=== PATIENT | female | born 1990 | race Caucasian/White ===

== ENCOUNTER 2017-09-26 07:28 | Inpatient (IN) | payer MEDICAID ==
[~2017-09-26] VITALS: Ht 160.7 cm; Wt 88.9 kg
[2017-09-26] VITALS (24 sets, daily range): BP systolic 106–144; BP diastolic 55–106; Ht 160.7 cm; Wt 88.9 kg
[~2017-09-26 07:28] MED LIST: ACET-1966 PO; CIPR-326 PO; DUL30 PO; HYDR-4309 PO; IBUP800T37 PO; METH-543 PO; NIT100 PO; NO ROUTINE MEDS; NOR5/325 PO; ONDA4TAB PO; PER PO; PHENA200 PO; PNV1TABL77 PO; PRE20 PO; PREN-127 PO; PRO25 PO; [UNRECOGNIZED DRUG - OTHER]
[2017-09-26] MEDS ORDERED: ONDANSETRON 4 MG/2 ML VIAL IVP PRN (08:10)
[2017-09-26] MEDS ORDERED: FAMOTIDINE 20 MG/50 ML PREMIX IVPB ONE (08:10)
[2017-09-26] MEDS ORDERED: cefOXitin/DEX(*) 2GM/50ML PREM 50 ML IVPB ONE (08:25)
[2017-09-26 08:35] LABS: PLATELET COUNT, AUTOMATED 302 K/uL (150-450)
[2017-09-26] MEDS: LR(*) 1000 ML BAG 1,000 ML IV SCH ×3 (08:45→17:37)
[2017-09-26] MEDS ORDERED: METOCLOPRAMIDE 10 MG/2 ML SDV IVP ONE (09:25)
--- NOTE | 2017-09-26 09:33 | History & Physical ---
History of Present Illness Age of Patient: 27 : 2 Para or TPAL: 1001 EDC per LMP: Sep 28, 2017 Estimated Gestational Age: 40.5 Chief Complaint H/O C SECTION History of Present Illness The patient is a 27 year old 2 para 1001 admitted at 39 5/7 weeks estimated gestational age with an estimated date of delivery 09/28/17 . Patient is admitted for RLTCS . No vaginal bleeding. Good movement and occasional contractions. She was evaluated for active labor. She had an uncomplicated course. Her record was reviewed. History Allergies: Coded Allergies: Penicillins (Verified Allergy, Mild, 04/19/16) latex (Verified Allergy, Mild, RASH, 09/25/17) Family History: FH: diabetes mellitus Paternal Grandfather, Onset:Unknown FH: heart disease MOTHER, Onset:Unknown Med Rec Home Meds Reported Medications Acetaminophen (TYLENOL) 325 Mg Tablet, 325 MG PO, TAB 09/25/17 Vits W-Ca,Fe,Fa(<1MG) ( VITAMINS) 1 Each Tablet, 1 EACH PO DAILY, TAB 09/25/17 Discontinued Scripts Hydrocodone Bit/Acetaminophen (NORCO 5-325 TABLET) 1 Each Tablet, 1-2 EACH PO Q4H Y for PAIN, #15 TAB Prov:CORINA ACEVEDO DO 04/19/16 Methocarbamol (ROBAXIN-750) 750 Mg Tablet, 1 TAB PO TID Y for muscle spasm relief, #30 Prov:CORINA ACEVEDO DO 04/19/16 Exam General Exam Vital Signs Vital Signs Date Time Temp Pulse Resp B/P (MAP) Pulse Ox O2 Delivery O2 Flow Rate FiO2 09/26/17 07:59 98.8 98 17 133/79 (97) 99 Room Air Cardiovascular: Regular Rate and Rhythm Respiratory: Clear to Auscultation Abdomen: Gravid - Non-Tender Extremities: No Edema Uterine Contractions(Q min): 0 Fetus Heart Tones: 130 FHT Category: I Medical Decision Making Data Points Result Diagram: 09/26/17 0826 Assessment and Plan Problems: (1) History of Assessment & Plan: H/O C SECTION PLAN FOR RLTCS Copies to: SHANICE SAHU MD, JOHN MD Sep 26, 2017 09:33
[2017-09-26] MEDS ORDERED: METOCLOPRAMIDE 10 MG/2 ML SDV ONE (09:34)
[2017-09-26] MEDS ORDERED: MORPHINE PF 5 MG/10 ML AMP ONE (09:38)
[2017-09-26] MEDS ORDERED: OXYTOCIN 10 UNIT/ML SDV ONE ×2 (09:46→11:46)
[2017-09-26] MEDS ORDERED: PHENYLEPHRINE/NS/PF 0.4MG/10ML ONE (10:12)
[2017-09-26] MEDS ORDERED: NS 0.9% 20 ML SDV 20 ML ONE (10:20)
[2017-09-26] MEDS ORDERED: PHENYLEPHRINE 10 MG/1 ML VIAL ONE (10:20)
[2017-09-26] MEDS ORDERED: DEXAMETHASONE SOD 4 MG/ML VIAL ONE (10:24)
[2017-09-26] MEDS ORDERED: METHYLERGONOVINE MAL 0.2MG/ML ONE (10:49)
[2017-09-26] MEDS ORDERED: MISOPROSTOL 200 MCG TAB PR ONE (11:15)
[2017-09-26] MEDS ORDERED: METHYLERGONOVINE MAL 0.2MG/ML IM ONE (11:15)
[2017-09-26] MEDS ORDERED: DLR(*) 1000 ML BAG 1,000 ML IV PRN (11:43)
[2017-09-26] MEDS ORDERED: OXYTOCIN 30 UNIT/D5LR 500 ML 500 ML IV PRN (11:43)
[2017-09-26] MEDS ORDERED: FAMOTIDINE(*) 20MG/50ML PREMIX 50 ML IVPB PRN (11:43)
[2017-09-26] MEDS ORDERED: ONDANSETRON 4 MG/2 ML VIAL IV PRN (11:45)
[2017-09-26] MEDS ORDERED: LANOLIN OINT 7 GM TUBE TP PRN (11:45)
[2017-09-26] MEDS ORDERED: METOCLOPRAMIDE 10 MG/2 ML SDV IV PRN (11:45)
[2017-09-26] MEDS ORDERED: PROMETHAZINE 25 MG/ML 1 ML AMP IVP PRN (11:45)
[2017-09-26] MEDS ORDERED: FLUSH 10 ML SYR IVP PRN (11:45)
--- NOTE | 2017-09-26 11:57 | Post Operative Note ---
Operative Note - WELDER TACK Operative Day Date: Sep 26, 2017 Time: 11:20 Physicians Surgeon: LUIS ALBERTO Anesthesia: THONY Diagnosis Pre-Op Diagnosis: IUP AT 39 5/7 H/O C/S ANEMIA Post-Op Diagnosis: SAME UTERINE ATONY Procedure Findings: MALE 4026 GMS 9,9 NORMAL UTERUS OVARIES AND TUBES Procedure(s): RLTCS Complications: O Fluids Fluids: 3100 CC LR IV Estimated Blood Loss: 800 CC Dictated Date OP Note Dictated: Sep 26, 2017 Time OP Note Dictated: 11:58 Copies to: SHANICE SAHU MD, JOHN MD Sep 26, 2017 11:57
[2017-09-26] MEDS ORDERED: ACETAMINOPHEN(*)1000 MG/100 ML 100 ML IVPB SCH (12:00)
[2017-09-26] MEDS ORDERED: KETOROLAC 30 MG/ML VIAL IVP SCH (12:00)
--- NOTE | 2017-09-26 12:40 | Anesthesia OB Pre-Anes Eval ---
History of Present Illness Anesthesia Start Date: Sep 26, 2017 Anesthesia Start Time: 10:02 OB Anesthesia Diagnosis: repeat c/section Current Complication: obesity EDC: Sep 28, 2017 : 2 Para: 1 Pain Ratin Result Diagram: 09/26/17 0826 Height (Inches): 63.25 Weight (Pounds): 196 BMI Calculated: 34.44 Past Medical History Medical History: no pertinent history Surgical History: noncontributory Previous Anesthesia: epidural Attended Childbirth Classes?: No Hx Anesthesia Reactions: No Hx Family Anesthesia Reaction: No Home Meds Reported Medications Acetaminophen (TYLENOL) 325 Mg Tablet, 325 MG PO, TAB 09/25/17 Vits W-Ca,Fe,Fa(<1MG) ( VITAMINS) 1 Each Tablet, 1 EACH PO DAILY, TAB 09/25/17 Discontinued Scripts Hydrocodone Bit/Acetaminophen (NORCO 5-325 TABLET) 1 Each Tablet, 1-2 EACH PO Q4H Y for PAIN, #15 TAB Prov:CORINA ACEVEDO DO 04/19/16 Methocarbamol (ROBAXIN-750) 750 Mg Tablet, 1 TAB PO TID Y for muscle spasm relief, #30 Prov:CORINA ACEVEDO DO 04/19/16 Allergies: Coded Allergies: Penicillins (Verified Allergy, Mild, 04/19/16) latex (Verified Allergy, Mild, RASH, 09/25/17) Anesthesia OB ROS Airway Class: l ASA Classification: 2 Assessment and Plan Anesthesia Plan: SAB Assessment: Plan is for SAB with duramorph for repeat C/S. Pt. also advised she may require blood transfusion due to her history of large blood loss with previous C/S and fairly low H&H today. Anesthesia Stop Day: Sep 26, 2017 Anesthesia Stop Time: 11:54 CARLA BHANDARI CRNA Sep 26, 2017 12:40
[2017-09-26] MEDS: SIMETHICONE 80 MG CHEW CHEW SCH ×3 (15:28→21:09)
--- NOTE | 2017-09-26 15:40 | OPERATIVE REPORT 1 ---
EVENT DATE: September 26, 2017 SURGEON: Alvaro Ziegler MD ANESTHESIOLOGIST: Tray Aguirre CRNA ANESTHESIA: Intrathecal. SOLE PAINTER: Gisela Santana PREOPERATIVE DIAGNOSES 1. Intrauterine at 39-5/7 weeks estimated gestational age. 2. History of section. 3. Anemia. POSTOPERATIVE DIAGNOSES 1. Intrauterine at 39-5/7 weeks estimated gestational age. 2. History of section. 3. Anemia. 4. Uterine atony. PROCEDURE PERFORMED Repeat low transverse section. COMPLICATIONS None. FLUIDS Lactated Ringer's 3100 mL IV. ESTIMATED BLOOD LOSS 800 mL URINE OUTPUT 250 mL INDICATIONS The patient is a 27-year-old G2, P1, admitted at 39-5/7 weeks. She had undesired fertility, but did not sign her Title XIX papers in time. She did desire repeat low transverse with the history of . FINDINGS Male infant with Apgars 9 at one minute and 9 at five minutes, weighing 4026 g. She had normal-appearing uterus, ovaries, and tubes. She did have some uterine atony, likely from the large . DESCRIPTION OF PROCEDURE After informed consent was obtained, the patient was taken to the operating room with the IV running and placed in a sitting position where intrathecal anesthetic was obtained without difficulty. She was then placed in the supine position with a leftward tilt. A Stallings catheter was placed in the OR, and she was prepped and draped in the usual fashion. A previous Pfannenstiel skin incision was followed. The scar at the skin surface was removed with the scalpel and the Bovie. The incision was carried through to the underlying layer of fascia with the Bovie. The fascia was nicked in the midline and extended laterally with Borja scissors bilaterally. The rectus fascia was dissected off the rectus muscles with both blunt and sharp dissection on the superior, then inferior aspects of the incision. The rectus muscles were divided in the midline. The peritoneum was entered sharply with Metzenbaum scissors. The peritoneal incision was extended superiorly and inferiorly with good visualization of the bladder. The bladder blade was placed. A bladder flap was created with Metzenbaum scissors. After the bladder blade was replaced , a low transverse uterine incision was made with a scalpel. The incision was extended laterally with digital technique. The infant's vertex was then delivered through the uterine incision. The oropharynx and nasopharynx were bulb suctioned. The remainder of the delivered with ease, and the infant was noted to have spontaneous cry and spontaneous movement of all four extremities. The infant was dried, the cord clamped times two and cut, and handed to the awaiting nursing personnel who were in attendance for the delivery. Cord blood was obtained. The placenta delivered intact manually. The uterus was exteriorized and cleared of all clot and debris. The uterine incision was then closed with 0 Vicryl in a running locked fashion. A second imbricating layer of 0 Vicryl was used. O'Laurens sutures were used on the left apex for hemostasis. She had been given 0.2 Methergine and 40 of Pitocin in her IV bag to help firm the uterus. Initially, she was atonic likely from the large infant. The uterus then firmed. The posterior cul-de-sac was copiously irrigated, and there was a large amount of oozing in the left-sided lower segment. [id number]-[id number] sutures were used to create hemostasis on the left side with 3-0 Vicryl. After hemostasis was assured, the Bovie was used to make the peritoneal edges hemostatic. The uterus was returned to the pelvis, and there was some continued oozing from the left lower edge. An additional figure- of-eight suture was used with 0 Vicryl. At this point, there was just some minor oozing from the peritoneal edges. Will was used to coat the site, and hemostasis was noted. The left and right pericolic gutters had been cleared of all clot and debris prior to using the Will. The peritoneum and rectus muscles were then closed in a running fashion with 3-0 Vicryl. The subfascial compartment was inspected. Any bleeding was made hemostatic with the Bovie. Irrigation was performed in the subfascial compartment. The fascia was closed with 0 Vicryl in a running fashion. The subcutaneous space was irrigated. Any bleeding was made hemostatic with the Bovie. The subcutaneous space was approximated with 3-0 Vicryl and then the skin closed with eh. The uterus was expressed of any clot, and then 800 mcg of Cytotec was placed per rectum in the OR. The patient had started at 9.2 with her hemoglobin with estimated 800 mL blood loss in the uterine atony. She was initiated with two units of packed cells and one unit of FFP. She was taken to the recovery room in stable condition. SENTHIL
[2017-09-26] MEDS: KETOROLAC 30 MG/ML VIAL IVP SCH (19:49)
[2017-09-26] MEDS: FAMOTIDINE 20 MG TAB PO SCH (21:08)
[2017-09-26] MEDS: DOCUSATE CALCIUM 240 MG CAP PO SCH (21:09)
[2017-09-26] MEDS: ACETAMINOPHEN(*)1000 MG/100 ML 100 ML IVPB SCH (22:06)
[2017-09-27] MEDS: KETOROLAC 30 MG/ML VIAL IVP SCH (02:02)
[2017-09-27 04:15] VITALS: BP 104/71
[2017-09-27] MEDS: ACETAMINOPHEN(*)1000 MG/100 ML 100 ML IVPB SCH ×3 (04:17→16:00)
[2017-09-27 06:29] LABS: PLATELET COUNT, AUTOMATED 223 K/uL (150-450)
[2017-09-27 08:15] VITALS: BP 104/71
[2017-09-27] MEDS: IBUPROFEN 800 MG TAB PO SCH ×2 (08:55→16:33)
[2017-09-27] MEDS: FAMOTIDINE 20 MG TAB PO SCH ×2 (08:55→20:22)
[2017-09-27] MEDS: DOCUSATE CALCIUM 240 MG CAP PO SCH ×2 (08:55→20:22)
[2017-09-27] MEDS: SIMETHICONE 80 MG CHEW CHEW SCH ×4 (08:55→20:22)
--- NOTE | 2017-09-27 09:37 | OB/GYN Progress Note ---
OB Subjective Progress Notes Subjective Doing good this morning. Reports minimal to zero pain. Hasn't gotten out of bed yet. No heavy vaginal bleeding. No rapid heart rate. No dizziness. . Still has mathews catheter. GI: NEG Nausea, NEG Vomiting, NEG Flatus, NEG Bowel Movement : Vaginal Bleeding, Scant Pain: Mild, Tolerating PO Pain Meds, Using IV Pain Meds Neurological: No Headache, No Other Eyes: No Visual Disturbances OB Objective Physical Exam Vital Signs Date Time Temp Pulse Resp B/P (MAP) Pulse Ox O2 Delivery O2 Flow Rate FiO2 09/27/17 04:15 98.4 62 16 104/71 (82) 97 Nasal Cannula 09/26/17 23:05 1.0 General Appearance: Alert/Awake/No Acute Distress Neurological: No Gross deficits Eyes: Normal Extraocular Movement & Vison ENT: Normal Neck: No Masses Cardiovascular: Normal Rhythm & Peripheral Pulses Respiratory: No Respiratory Distress, Clear to Auscultation Abdomen: Soft, Non-Tender, Non-Distended : Normal Musculoskeletal: No Weakness/Pain Extremities: No Cyanosis,Clubbing or Edema, No Edema Integumentary: Skin Intact without Lesions or Rash Psychological: Alert & Oriented X3, Appropriate Mood & Affect Result Diagram: 09/27/17 0619 Assessment and Plan SURGICAL SCHEDULER Assessment: Stable SURGICAL SCHEDULER Plan: Routine Post-Op Care, Discharge Home Tomorrow Problems: (1) History of Assessment & Plan: S/P 2 units PRBC and 1 unit FFP. Asymptomatic this morning. Great U/O all night. Pt to have mathews removed. Saline lock IV and if tolerating ambulation with out any difficulty will d/c iv. Continue current management. Will add FESO4 to patient medications. BELA MARIE DO Sep 27, 2017 09:37
[2017-09-27] MEDS: HYDROmorphone HCL 2 MG TAB PO PRN ×2 (11:10→20:22)
[2017-09-27 13:00] VITALS: BP 131/83
[2017-09-27 15:10] VITALS: BP 136/86
[2017-09-27] MEDS: FERROUS SULFATE 325 MG TAB PO SCH (16:33)
[2017-09-27 20:00] VITALS: BP 114/75
[2017-09-28 01:00] VITALS: BP 116/80
[2017-09-28] MEDS: IBUPROFEN 800 MG TAB PO SCH ×2 (01:23→09:15)
[2017-09-28] MEDS: HYDROmorphone HCL 2 MG TAB PO PRN ×3 (01:32→16:07)
[2017-09-28 03:00] VITALS: BP 120/82
[2017-09-28 07:30] VITALS: BP 112/76
[2017-09-28] MEDS: DOCUSATE CALCIUM 240 MG CAP PO SCH (09:14)
[2017-09-28] MEDS: SIMETHICONE 80 MG CHEW CHEW SCH (09:14)
[2017-09-28] MEDS: FERROUS SULFATE 325 MG TAB PO SCH (09:14)
[2017-09-28] MEDS: FAMOTIDINE 20 MG TAB PO SCH (09:14)
[2017-09-28] MEDS ORDERED: DOCU240C67 PO (09:22)
[2017-09-28] MEDS ORDERED: IBUP800T37 PO (09:22)
[2017-09-28] MEDS ORDERED: FERR-41 PO (09:22)
[2017-09-28] MEDS ORDERED: OXYC-373 PO (09:22)
--- NOTE | 2017-09-28 09:23 | OB/GYN Discharge Summary ---
Discharge Summary Reason for Hosp/Final Diag: (1) History of Status: Resolved (2) care following delivery Hospital Course & Plan: Pain controlled, Tolerating diet and activity. Baby . Normal lochia. Lates Vital Signs Vital Signs Date Time Temp Pulse Resp B/P (MAP) Pulse Ox O2 Delivery O2 Flow Rate FiO2 09/28/17 03:00 98.9 82 16 120/82 (95) 93 Room Air 09/27/17 08:15 2.0 Weight (Pounds): 196 Result Diagram: 09/27/17 0619 Condition: Improved Discharge: Home, Self Skilled Nursing Meds Active Scripts Oxycodone Hcl/Acetaminophen (OXYCODONE-ACETAMINOPHEN 5-325) 1 Each Tablet, 1-2 EACH PO Q4H Y for PAIN, #30 TAB 0 Refills TAKE 1-2 TABLET NEEDED FOR PAIN - NO CLOSER THAN EVERY 4 HOURS. Prov:SHANICE ZIEGLER MD 09/28/17 Ibuprofen (IBUPROFEN) 800 Mg Tablet, 1 TAB PO Q8H, #30 TAB 0 Refills Take with food every 8 hours. Prov:SHANICE ZIEGLER MD 09/28/17 Ferrous Sulfate (FERROUS SULFATE) 325 Mg Tablet.dr, 1 TAB PO BID, #60 TAB 0 Refills Prov:SHANICE ZIEGLER MD 09/28/17 Docusate Calcium (DOCUSATE CALCIUM) 240 Mg Capsule, 1 CAP PO BID, #60 CAPSULE 0 Refills Prov:SHANICE ZIEGLER MD 09/28/17 Reported Medications Acetaminophen (TYLENOL) 325 Mg Tablet, 325 MG PO, TAB 09/25/17 Vits W-Ca,Fe,Fa(<1MG) ( VITAMINS) 1 Each Tablet, 1 EACH PO DAILY, TAB 09/25/17 Discontinued Scripts Hydrocodone Bit/Acetaminophen (NORCO 5-325 TABLET) 1 Each Tablet, 1-2 EACH PO Q4H Y for PAIN, #15 TAB Prov:CORINA ACEVEDO DO 04/19/16 Methocarbamol (ROBAXIN-750) 750 Mg Tablet, 1 TAB PO TID Y for muscle spasm relief, #30 Prov:CORINA ACEVEDO DO 04/19/16 Follow up with: Dr. Ziegler [phone] Follow up in: 2 wks PO Discharge Diet: As Tolerates Discharge Activity: Pelvic Rest Copies to: SHANICE ZIEGLER MD, JOHN MD Feb 11, 2018 09:23
--- NOTE | 2017-09-28 09:27 | OB/GYN Progress Note ---
OB Subjective Progress Notes Subjective Pain controlled, Tolerating diet and activity. Baby . Normal lochia. Asymptomatic with anemia GI: POS Flatus, NEG Nausea, NEG Vomiting : Voiding Well Pain: Mild OB Objective Physical Exam Vital Signs Date Time Temp Pulse Resp B/P (MAP) Pulse Ox O2 Delivery O2 Flow Rate FiO2 09/28/17 03:00 98.9 82 16 120/82 (95) 93 Room Air 09/27/17 08:15 2.0 General Appearance: Alert/Awake/No Acute Distress Neurological: No Gross deficits Eyes: Normal Extraocular Movement & Vison ENT: Normal Neck: No Masses Cardiovascular: Normal Rhythm & Peripheral Pulses, Regular Rate and Rhythm Respiratory: No Respiratory Distress, Clear to Auscultation Abdomen: Soft, Non-Tender, Non-Distended, Bowel Sounds Present Incision: Clean, Dry, Intact, [place] : Normal Musculoskeletal: No Weakness/Pain Extremities: No Cyanosis,Clubbing or Edema, No Edema Integumentary: Skin Intact without Lesions or Rash Psychological: Alert & Oriented X3, Appropriate Mood & Affect Result Diagram: 09/27/17 0619 Assessment and Plan Problems: (1) History of Status: Resolved (2) care following delivery Assessment & Plan: Pain controlled, Tolerating diet and activity. Baby . Normal lochia. Asymptomatic with anemia (3) Acute blood loss anemia Assessment & Plan: anemic on admission at 9.2, received 2 uPRBCs, and one unit FFP. Tolerating well , encouraged to take iron supplement SHANICE SAHU MD Sep 28, 2017 09:27
[2017-09-28] MEDS ORDERED: BISACODYL 10 MG SUPP PR ONE (09:45)
--- NOTE | 2017-09-28 10:22 | Anesthesia Post Eval Note ---
Anesthesia Post Eval Note Vital Signs Date Time Temp Pulse Resp B/P (MAP) Pulse Ox O2 Delivery O2 Flow Rate FiO2 09/28/17 03:00 98.9 82 16 120/82 (95) 93 Room Air 09/27/17 08:15 2.0 Pt able to participate in Eval: Yes Cardiovascular Status: Satisfactory Respiratory Status: Satisfactory Pain Managment: Satisfactory PO Nausea/Vomiting: Satisfactory Temperature Management: Satisfactory Mental Status: Satisfactory, Alert, Oriented X3 Post-Op Hydration Status: Satisfactory, Tolerating PO Well, Voiding w/o Difficulty Anesthesia Type: SAB Anesthesia Tolerance: Tolerated procedure well without apparent anesthetic complications. LP site clear, no redness or edema. Denies headache or any residual paresthesia. Vital Signs Stable, Patient comfortable and condition stable. KASIA MORALES CRNA Sep 28, 2017 10:22
[2017-09-28] MEDS ORDERED: INFLUENZA VIRUS VAC 0.5 ML SYR IM ONLY ONE (11:45)
[2017-09-28] MEDS ORDERED: DIPHTH/TETANUS/ACEL. PERTUSSIS IM ONLY ONE (11:45)
[2017-09-28] MEDS ORDERED: MEASLES,MUMP,RUBELLA VAC 0.5ML SUBQ ONE (11:45)
== END 2017-09-28 16:15 | disposition home or self-care (01) | DRG 765 ==
LOC: OB 07:28
PROVIDERS: ADMIT Obstetrics & Gynecology; ATTEND Obstetrics & Gynecology
PROC: 30233N1 Transfusion of Nonautologous Red Blood Cells into Peripheral Vein, Percutaneous Approach (ICD-10-PCS; 2017-09-26)
PROC: 30233K1 Transfusion of Nonautologous Frozen Plasma into Peripheral Vein, Percutaneous Approach (ICD-10-PCS; 2017-09-26)
PROC: 10D00Z1 Extraction of Products of Conception, Low, Open Approach (ICD-10-PCS; principal; 2017-09-26 09:25)
DX: O34.211 Maternal care for low transverse scar from previous cesarean delivery (principal); O72.1 Other immediate postpartum hemorrhage; D62 Acute posthemorrhagic anemia; O99.02 Anemia complicating childbirth; Z37.0 Single live birth; Z3A.39 39 weeks gestation of pregnancy; O99.214 Obesity complicating childbirth; E66.9 Obesity, unspecified; F32.9 Major depressive disorder, single episode, unspecified; F41.9 Anxiety disorder, unspecified; Z88.0 Allergy status to penicillin; Z91.040 Latex allergy status; Z87.891 Personal history of nicotine dependence; Z87.898 Personal history of other specified conditions; Z86.69 Personal history of other diseases of the nervous system and sense organs; O99.344 Other mental disorders complicating childbirth; Z68.34 Body mass index [BMI] 34.0-34.9, adult
CPT/HCPCS: 36415; 36430; 85014; 85018; 85025; 86850; 86900; 86901; 86920; J0131; J0694; J1100; J1885; J2210; J2270; J2370; J2405; J2590; J2765; J3490; J7050; J7120; P9016; P9017